=== PATIENT | female | born 1980 | race Caucasian/White ===

== ENCOUNTER → 2018-05-17 | Outpatient (CLI) | payer BC | LOC: COL.RAD 09:37 | DX: R10.33 Periumbilical pain (principal); Z90.49 Acquired absence of other specified parts of digestive tract | CPT/HCPCS: Q9967 ==

== ENCOUNTER 2018-06-08 07:37 | Day surgery (SDC) | payer BC ==
[2006-10-16 15:36] VITALS: BP 124/69
[~2018-06-08] VITALS: Ht 167.6 cm; Wt 118.2 kg
[2018-06-08 08:03] VITALS: BP 131/86; PULSE 66; TEMP 98.4
[2018-06-08] MEDS ORDERED: HAIRSKINNAILS PO (08:26)
[2018-06-08] MEDS ORDERED: B COMPLEX & B121 TAB PO (08:26)
[2018-06-08] MEDS ORDERED: CALCIUM 600 PLU1 TAB PO (08:27)
[2018-06-08] MEDS ORDERED: ALLEGRA 180MG180 MG PO (08:27)
[2018-06-08] MEDS ORDERED: NEXIUM 40MG40 MG PO (08:28)
[2018-06-08] MEDS ORDERED: FLONASEALLERGY NS (08:28)
[2018-06-08 09:45] VITALS: BP 134/83; PULSE 80; TEMP 98.2
[2018-06-08 10:15] VITALS: BP 116/85; PULSE 79
== END 2018-06-08 10:25 | disposition home or self-care (01) ==
LOC: SDCO 07:37
DX: K21.9 Gastro-esophageal reflux disease without esophagitis (principal); K30 Functional dyspepsia; Z98.890 Other specified postprocedural states
CPT/HCPCS: J2250; J2405; J3010; J7030

== ENCOUNTER 2019-11-07 05:41 | Inpatient (IN) | payer BC ==
[~2019-11-07] VITALS: Ht 167.6 cm; Wt 128.0 kg
[2019-11-07] VITALS (12 sets, daily range): BP systolic 104–132; BP diastolic 47–91; PULSE 52–98; TEMP 97–98.9
[~2019-11-07 05:41] MED LIST: ALLEGRA 180MG180 MG PO; B COMPLEX & B121 TAB PO; CALCIUM 600 PLU1 TAB PO; FLONASEALLERGY NS; HAIRSKINNAILS PO; NEXIUM 40MG40 MG PO
[2019-11-07] MEDS ORDERED: AMOXICILLIN 8751 TAB PO (06:49)
--- NOTE | 2019-11-07 09:45 | NUR ---
0945 PATIENT ARRIVED TO OUR UNIT, VSS, PATIENT IS RESTING COMFORTABLY, SURROUNDED BY FAMILY. ASSESSMENT COMPLETED. DENIES NEEDS. 1000 PATIENT SLEEPING, WAKES EASILY. DENIES NEEDS. O2 100% ON 2 L NASAL CANNULA. DECREASED TO 1 L. 1015 RESTING. 1030 AWAKE AND DENIES NEEDS, DENIES PAIN AT THIS TIME. SIPPING WATER AND ICE. 1045 VSS. SLEEPING, WAKES EASILY. O2 REMOVED. 1115 DENIES N/V, REPORTS PAIN IS INCREASING, REQUESTED 1 PERC AT THIS TIME. TOOK WITH A TATYANA CRACKER, TOLERATED WELL. 1145 RESTING QUIETLY, VSS. HAD ATTEMPTED ADVANCED DIET AND ОЛЬГА WELL. 1250 REPORTS PAIN INCREASING STILL, 1300 MOTRIN GIVEN WELL 1 MORE PERCOCET. REPORTS SHE JUST WANTS TO REST FOR NOW. THIS NURSE ASSESSED ABDOMEN AND CHRIS PAD AGAIN, WNL. WILL CONT TO [facility].
[2019-11-07] MEDS ORDERED: MOTRIN 800800 MG/TAB PO (13:15)
[2019-11-07] MEDS ORDERED: PERCOCET 325 MG1 TA2 PO (13:15)
--- NOTE | 2019-11-07 15:30 | NUR ---
1530 PATIENT STATED SHE HAD TO VOID, AMBULATED TO BATHROOM X STAND BY ASSIST. TOLERATED WELL. DENIES FEELING DIZZY. STATES PAIN IS THERE BUT TOLERABLE. VOIDED 800. HAS BEEN SIPPING WATER AND SNACKING ON AND OFF ALL AFTERNOON. TOLERATING WELL. WILL TAKE A PERCOCET AT 1700 WHEN AVAILABLE. DENIES NEEDS.
[2019-11-08 01:15] VITALS: BP 110/57; PULSE 88; TEMP 98.6
[2019-11-08 05:15] VITALS: BP 121/75; PULSE 86; TEMP 98.7
[2019-11-08 07:22] VITALS: BP 116/68; PULSE 76; TEMP 98.1
--- NOTE | 2019-11-08 09:40 | NUR ---
Initial visit attempt; Patient out of room, Child Welfare Specialist left card letting her know of the availability of spiritual care at our hospital.
== END 2019-11-08 11:30 | disposition home or self-care (01) | DRG 743 ==
LOC: OB 05:41 → INPTSU 05:41 → OB 07:30
PROVIDERS: ADMIT Obstetrics & Gynecology
PROC: 0UT9FZZ Resection of Uterus, Via Natural or Artificial Opening With Percutaneous Endoscopic Assistance (ICD-10-PCS; principal; 2019-11-07 07:30)
PROC: 0UT5FZZ Resection of Right Fallopian Tube, Via Natural or Artificial Opening With Percutaneous Endoscopic Assistance (ICD-10-PCS; 2019-11-07 07:30)
DX: N92.1 Excessive and frequent menstruation with irregular cycle (principal); Z88.8 Allergy status to other drugs, medicaments and biological substances; Z88.2 Allergy status to sulfonamides; Z90.79 Acquired absence of other genital organ(s)
CPT/HCPCS: J0690; J1100; J1885; J2405; J2704; J2710; J3010; J7120

== ENCOUNTER → 2021-12-13 | Outpatient (CLI) | payer BC ==
[~2021-12-13] MED LIST changes: +AMOXICILLIN 8751 TAB PO; +MOTRIN 800800 MG/TAB PO; +PERCOCET 325 MG1 TA2 PO
== END ==
LOC: MC.RAD 08:58
DX: Z12.31 Encounter for screening mammogram for malignant neoplasm of breast (principal)

== ENCOUNTER → 2021-12-13 | Outpatient (CLI) | payer BC ==
[2021-12-13 10:42] LABS: BASO # 0.1 K/mm3 (0.0-0.2); BASO % 0.6 % (0.0-2.0); EOS # 0.1 K/mm3 (0.0-0.7); EOS % 1.2 % (0.0-4.0); GRAN # 7.3 K/mm3 (1.4-6.5); GRAN % 72.3 % (42.2-75.2); HEMATOCRIT 38.8 % (37.0-47.0); HEMOGLOBIN 13.2 g/dl (12.5-16.0); LYMPH # 1.7 K/mm3 (1.2-3.4); MEAN CELL VOLUME 89 fl (80.0-100.0); MEAN CORPUSCULAR HEMOGLOBIN 30 pg (27-31); MEAN CORPUSCULAR HGB CONC 34 g/dl (33.0-37.0); MEAN PLATELET VOLUME 10.6 fl (7.4-10.4); MONO # 0.9 K/mm3 (0.1-0.6); MONO % 8.5 % (1.7-9.3); PLATELET COUNT 256 K/mm3 (130-400); RED BLOOD COUNT 4.36 M/mm3 (4.10-5.30); REDCELL DISTRIBUTION WIDTH-CV 13.7 % (11.5-14.5)
== END ==
LOC: COL.LAB 10:02
PROVIDERS: Internal Medicine Pulmonary Disease
DX: J45.40 Moderate persistent asthma, uncomplicated (principal)

== ENCOUNTER → 2022-02-10 | Outpatient (CLI) | payer BC | LOC: COL.PUL 10:00 | DX: J30.9 Allergic rhinitis, unspecified (principal) | CPT/HCPCS: J7674 ==